=== PATIENT | male | born 1950 | race Caucasian/White ===

== ENCOUNTER 2017-03-31 14:56 | Emergency (ER) | payer MEDICARE, OTHER ==
[2017-03-31 14:58] VITALS: BP 151/88; PULSE 91; RESP 12; TEMP 98.4; O2SAT 95
[2017-03-31] MEDS ORDERED: predniSONE 20 MG TAB PO ONE (15:15)
[2017-03-31] MEDS ORDERED: FAMOTIDINE 20 MG TAB PO ONE (15:15)
--- NOTE | 2017-03-31 15:18 | PD ---
HPI Chief Complaint: Bite or Sting Time Seen by Provider: 15:05 Travel History International Travel<30 days: No Contact w/Intl Traveler<30days: No Traveled to known affect area: No History of Present Illness HPI Patient comes in complaining of possible bug bites to his wrists and neck. Patient states he was staying at a hotel last night he started itching his wrist and neck after lying in bed. Patient felt it may have had bed bugs and switched rooms. Patient states he continues to have itching on his wrist and neck feels somewhat better as the day has progressed, however he continues to have the itching intermittently. Denies any pain with this. Denies any radiation. Patient reports he took a shower and switching rooms without improvement of symptoms. Denies anything making symptoms worse. PFSH Past Medical History Medical History: Denies Significant Hx Social History Alcohol Use: No Tobacco Use: No Substance Use: No Allergies-Medications (Allergen,Severity, Reaction): Coded Allergies: No Known Allergies (Unverified , 03/31/17) Reported Meds & Prescriptions Reported Meds & Active Scripts Active Pepcid (Famotidine) 20 Mg Tab 20 Mg PO BID 10 Days Medrol Dosepak (Methylprednisolone) 4 Mg Dspk 4 Mg PO DIRECTED Per Pharmacist direction Review of Systems Except as stated in HPI: all other systems reviewed are Neg Physical Exam Narrative GENERAL: Well-developed, overly nourished, in no acute distress, and non-ill appearing. SKIN: Focused skin assessment warm and dry. No obvious rash or bug bites noted. HEAD: Atraumatic. Normocephalic. EYES: Pupils equal and round. EOMI. No scleral icterus. No injection or drainage. ENT: No nasal bleeding or discharge. Mucous membranes pink and moist. NECK: Trachea midline. Supple. No nuclear rigidity. RESPIRATORY: No accessory muscle use. No respiratory distress. MUSCULOSKELETAL: No obvious deformities. No clubbing. No cyanosis. No edema. Full range of motion. NEUROLOGICAL: Awake and alert. No obvious cranial nerve deficits. Motor grossly within normal limits. Normal speech. PSYCHIATRIC: Appropriate mood and affect; insight and judgment normal. Data Data Last Documented VS Vital Signs Date Time Temp Pulse Resp B/P (MAP) Pulse Ox O2 Delivery O2 Flow Rate FiO2 03/31/17 14:58 98.4 91 12 151/88 (109) 95 Orders Orders Ed Discharge Order (03/31/17 15:14) Prednisone (Deltasone) (03/31/17 15:15) Famotidine (Pepcid) (03/31/17 15:15) Loratadine (Claritin) (03/31/17 15:30) MDM Medical Decision Making Medical Screen Exam Complete: Yes Emergency Medical Condition: Yes Differential Diagnosis Allergic reaction, bug bites, rash, generalized pruritus, Narrative Course The patient presented with nonspecific pruritus. There were no blisters or bullae, target lesions, purpura or petechia, nor vesiculobullous or scarlatiniform lesions. The patient looks great and was non-ill appearing. There was no evidence to suggest scabies, cellulitis, folliculitis or abscess, Staph. Scalded Skin Syndrome, Toxic Shock, Toxic Epidermal necrolysis, Kawasaki , Measles, Rubella, cutaneous T cell lymphoma, Erythema Multiforme (minor or major). Plan of care was discussed with the patient and the patient is to follow up with their physician. The patient agreed with plan. Patient in no obvious distress upon re-evaluation. All pertinent Radiology result(s) discussed with patient. Patient was asked if they wanted to speak to my attending, which the patient did not wish to do at this time. Any questions/ concerns in reference to patient diagnosis/condition discussed and clarified prior to patient's discharge. Reinforced sheer importance of close follow up with patient's primary physician or primary care clinic. Instructed patient to return to ED immediately, if symptoms return/worsen. Patient showed understanding of above instructions. Further instructions and recommendations were detailed in discharge paperwork. Patient ambulated without difficulty out of ED at discharge. Diagnosis Primary Impression: Pruritus Referrals: [facility]. Patient Instructions: General Instructions, Itchy Skin (ED) Additional Instructions: Follow-up with your primary care physician in 3-5 days for reevaluation. Take all medication as prescribed. Use [id number] Claritin or Zyrtec or Benadryl as needed for symptomatic relief. Follow instructions on the packaging. Return to the emergency department if symptoms get worse. Med/Other Pt SpecificInfo: Prescription(s) given Scripts Famotidine (Pepcid) 20 Mg Tab 20 MG PO BID for 10 Days, #20 TAB 0 Refills Prov: Arlyn Mina MD 03/31/17 Methylprednisolone Dosepak (Medrol Dosepak) 4 Mg Dspk 4 MG PO DIRECTED, #1 DSPK 0 Refills Per Pharmacist direction Prov: Arlyn Mina MD 03/31/17 Disposition: 01 DISCHARGE HOME Condition: Stable William Gomez Mar 31, 2017 15:18
[2017-03-31] MEDS ORDERED: FAMO1TAB37 PO (15:19)
[2017-03-31] MEDS ORDERED: MEDR4PAK PO (15:19)
[2017-03-31] MEDS ORDERED: LORATADINE 10 MG TAB PO ONE (15:30)
== END 2017-03-31 15:55 | disposition home or self-care (01) ==
LOC: NEPK 14:56
DX: L29.9 Pruritus, unspecified (principal)
CPT/HCPCS: 99283; J7512